=== PATIENT | female | born 1965 | race Caucasian/White ===

== ENCOUNTER 2018-11-26 09:26 | Emergency (ER) | payer BC ==
[2018-11-26 09:36] VITALS: BP 130/83; PULSE 73; TEMP 98.4; BMI 22.1
[2018-11-26] MEDS ORDERED: CYCLOBENZAPRINE HCL 10 MG TABLET (FP) PO ONE (10:02)
[2018-11-26] MEDS ORDERED: KETOROLAC TROMETHAMINE 30 MG/1 ML VIAL IM ONE (10:02)
--- NOTE | 2018-11-26 10:03 | PDOC ---
History of Present Illness - General Chief Complaint: Back Pain Stated Complaint: lower abck pain Time Seen by Provider: 11/26/18 09:42 History Source: Patient (patient walked in complaining of lower back pain after straining it) Exam Limitations: No Limitations - History of Present Illness Timing/Duration: 24 hours Severity: mild, moderate Modifying Factors: improves with: cold therapy, rest Associated Symptoms: reports: denies symptoms Past History - Travel Traveled outside of the country in the last 30 days: No Close contact w/someone who was outside of country & ill: No - Past Medical History Allergies/Adverse Reactions: Allergies Allergy/AdvReac Type Severity Reaction Status Date / Time No Known Allergies Allergy Verified 11/26/18 09:41 Home Medications: Ambulatory Orders Meloxicam [Mobic] 7.5 mg PO DAILY 11/26/18 Methocarbamol [Robaxin -] 500 mg PO TID 11/26/18 COPD: No GI Disorders: (celiac disease) - Surgical History Other Surgical History: C Section 11/26/18 10:26 - Suicide/Smoking/Psychosocial Hx Smoking History: Never smoked Hx Alcohol Use: Yes (occasional) Drug/Substance Use Hx: No Review of Systems - Review of Systems Able to Perform ROS?: Yes Is the patient limited Indonesian proficient: Yes Constitutional: No: Symptoms Reported, See HPI, Chills, Diaphoresis, Fever, Loss of Appetite, Malaise, Night Sweats, Weakness, Weight Stable, Unintentional Wgt. Loss, Unexplained wgt Loss, Other HEENTM: No: Symptoms Reported, See HPI, Eye Pain, Blurred Vision, Tearing, Recent change in vision, Double Vision, Cataracts, Ear Pain, Ocular Prothesis, Ear Discharge, Nose Pain, Nose Congestion, Tinnitus, Nose Bleeding, Hearing Loss , Throat Pain, Throat Swelling, Mouth Pain, Dental Problems, Difficulty Swallowing, Mouth Swelling, Other Respiratory: No: Symptoms reported, See HPI, Cough, Orthopnea, Shortness of Breath, SOB with Exertion, SOB at Rest, Stridor, Wheezing, Productive cough, Hemoptysis, Other Cardiac (ROS): No: Symptoms Reported, See HPI, Chest Pain, Edema, Irregular Heart Rate, Lightheadedness, Palpitations, Syncope, Chest Tightness, Other ABD/GI: No: Symptoms Reported, See HPI, Abdominal Distended, Abd. Pain w/ defecation, Blood Streaked Bowels, Constipated, Diarrhea, Difficulty Swallowing , Nausea, Poor Appetite, Poor Fluid Intake, Rectal Bleeding, Vomiting, Indigestion, Abdominal cramping, Tarry Stools, Other : No: Symptoms Reported, See HPI, Burning, Dysuria, Discharge, Frequency, Flank Pain, Hematuria, Incontinence, Pain, Urgency, Testicular Mass, Testicular Swelling, Lesions, Testicular Pain, Other Musculoskeletal: Yes: See HPI, Back Pain Integumentary: No: Symptoms Reported, See HPI, Bruising, Change in Color, Change in Hair/Nails, Dryness, Erythema, Flushing, Lesions, Lumps, Pallor, Pruritus, Rash, Sweating, Other Endocrine: No: Symptoms Reported, See HPI, Excessive Sweating, Flushing, Intolerance to Cold, Intolerance to Heat, Increased Hunger, Increased Thirst, Increased Urine, Unexplained Weight Gain, Unexplained Weight Loss, Change in Weight, Other *Physical Exam - Vital Signs Last Vital Signs Temp Pulse Resp BP Pulse Ox 98.4 F 73 16 130/83 100 11/26/18 09:27 11/26/18 09:27 11/26/18 09:27 11/26/18 09:27 11/26/18 09:27 - Physical Exam General Appearance: Yes: Nourished, Appropriately Dressed, Other (overweight) HEENT: positive: LEE Neck: positive: Supple Respiratory/Chest: positive: Lungs Clear Cardiovascular: positive: Regular Rhythm Musculoskeletal: positive: Normal Inspection, Other (Back pain) Extremity: positive: Normal Capillary Refill Integumentary: positive: Normal Color, Dry, Warm Neurologic: positive: neon glass bender II-XII NML intact, Fully Oriented, Alert, Normal Mood/ Affect Moderate Sedation - Procedure Monitoring Vital Signs: Procedure Monitoring Vital Signs Temperature 98.4 F 11/26/18 09:27 Pulse Rate 73 11/26/18 09:27 Respiratory Rate 16 11/26/18 09:27 Blood Pressure 130/83 11/26/18 09:27 O2 Sat by Pulse Oximetry (%) 100 11/26/18 09:27 Medical Decision Making - Medical Decision Making Patient was prescribed medication with relief, will follow with Sun Whitmore 01/06/19 18:44 *DC/Admit/Observation/Transfer Diagnosis at time of Disposition: Pain of back and left lower extremity - Discharge Dispostion Disposition: HOME Condition at time of disposition: Stable Decision to Admit order: No - Referrals Referrals: Shiv Whitmore [Non Staff, Medical] - - Patient Instructions Printed Discharge Instructions: DI for Back Pain With Sciatica Additional Instructions: See Dr Whitmore as scheduled - Post Discharge Activity Forms/Work/School Notes: Back to Work
[2018-11-26] MEDS ORDERED: KETOROLAC TROMETHAMINE 30 MG/1 ML VIAL ONE (10:04)
[2018-11-26] MEDS ORDERED: CYCLOBENZAPRINE HCL 10 MG TABLET (FP) ONE (10:04)
== END 2018-11-26 10:54 | disposition home or self-care (01) ==
LOC: FER 09:26
DX: M79.662 Pain in left lower leg (principal); M54.5 Low back pain
CPT/HCPCS: 72100-TC-FY; 99282-25